=== PATIENT | female | born 1950 | race Caucasian/White ===

== ENCOUNTER 2017-06-18 09:52 | Outpatient (CLI) | payer MEDICARE, BC | END 2017-06-18 09:53 | disposition home or self-care (01) | LOC: BICMAMMO 09:52 | PROVIDERS: ATTEND Obstetrics & Gynecology | DX: Z12.31 Encounter for screening mammogram for malignant neoplasm of breast (principal) | CPT/HCPCS: 77063; 77067 ==

== ENCOUNTER 2017-12-17 10:25 | Outpatient (CLI) | payer MEDICARE ==
--- NOTE | 2017-12-17 11:34 | ULT ---
THYROID ULTRASOUND: History: Thyroid nodules. FINDINGS: Real-time imaging of the thyroid was performed. The right lobe has been removed. The left lobe measur es 2.1 x 2.2 x 5.8 cm. Multiple nodules are seen within the left lobe, the largest is a 1 x 1.2 cm so lid nodule in the lower pole region. The gland is very heterogeneous. IMPRESSION: 1. Patient is status post right thyroid lobectomy. 2. Multiple left lobe thyroid nodules, the largest of which is just slightly greater than 1 cm in siz e. POS: [facility]
== END 2017-12-17 10:26 | disposition home or self-care (01) ==
LOC: BICULT 10:25
PROVIDERS: ATTEND Registered Nurse
DX: E03.9 Hypothyroidism, unspecified (principal); E04.2 Nontoxic multinodular goiter; Z90.89 Acquired absence of other organs
CPT/HCPCS: 76536

== ENCOUNTER 2018-03-25 14:21 | Outpatient (CLI) | payer MEDICARE ==
--- NOTE | 2018-03-25 15:57 | ULT ---
ULTRASOUND THYROID: 03/25/18 HISTORY: 67-year-old female with: ICD-10: E04.2 - nontoxic multinodular goiter. COMPARISON: Thyroid ultrasound of 12/17/17. FINDINGS: RIGHT LOBE: Surgically absent. ISTHMUS:0.6 cm AP. LEFT LOBE:5.6 x 2.1 x 1.8 cm. Heterogeneous echogenicity and heterogeneous echotexture of the left lobe of the thyroid gland, with multiple nodules, including the followin) Left upper pole 1.1 x 0.7 x 0.5 cm. Mixed echogenicity with hypoechoic, intermediate, and mildly h yperechoic, components. Composition: Solid: 2 points. Echogenicity: Hypoechoic: 2 points. Shape: Wider than tall: 0 points. Margin: Smooth: 0 points. Echogenic foci: None: 0 points. Total points: 4 TI-RADS category 4: Moderately suspicious. RECOMMENDATIONS: Fine needle aspiration if greater than or equal to 1.5 cm. Followup if greater than or equal to 1 cm. The latter applies in this case. No interval change. 2) 0.8 x 0.9 x 0.5 cm at mid pole: Composition: Solid: 2 points. Echogenicity: Hypoechoic: 2 points. Margin: Smooth: 0 points. Shape: Wider than tall: 0 points. Echogenic foci: None: 0 points. TI-RADS category 4. Because is it smaller than 1 cm, no followup for this particular lesion. 3), At left lower pole, two nodules adjacent to each other. One of them is 0.5 x 0.5 x 0.5 cm and is moderately hypoechoic, with TI-RADS category 4. The other is of similar size, is slightly hypoechoic relative to thyroid parenchyma, and is also a TI-RADS category 4. Both are less than 1 cm, and do not require followup. Uncertain whether these were present previously or not. Previously, another larger structure was measured as a nodule at the left lower lobe, but it is uncertain whether or not that w as just heterogeneous thyroid parenchyma rather than a true nodule. IMPRESSION: 1. Status post right thyroid lobectomy. 2. Several small left thyroid nodules. 3. TI-RADS category 4 - moderately suspicious. 4. For the left upper pole nodule, followup is recommended at 1, 2, 3, and 5 years from the orig in thyroid ultrasound of 12/17/17. POS: [facility]
== END 2018-03-25 14:22 | disposition home or self-care (01) ==
LOC: BICULT 14:21
DX: E04.2 Nontoxic multinodular goiter (principal); Z90.89 Acquired absence of other organs
CPT/HCPCS: 76536

== ENCOUNTER 2018-07-07 09:17 | Outpatient (CLI) | payer MEDICARE, BC ==
--- NOTE | 2018-07-07 09:54 | MMO ---
Bilateral MAMMO Bilat Screen [facility]. CLINICAL HISTORY: Patient is 67 years old and is seen for screening. The patient has no family history of breast cancer. The patient has no personal history of cancer. The patient has a history of Stereotatic Biopsy in - benign. VIEWS: The views performed were: bilateral craniocaudal with tomosynthesis; bilateral mediolateral oblique with tomosynthesis; and bilateral exaggerated craniocaudal. FILMS COMPARED: The present examination has been compared to prior imaging studies performed at [facility] on 06/13/2016 and 06/18/2017, and at [facility] on 03/15/2013, 01/18/2014 and 02/03/2015. MAMMOGRAM FINDINGS: The breasts are heterogeneously dense, which could obscure a lesion on mammography. Finding 1: There are benign appearing calcifications seen in both breasts. Finding 2: There is a biopsy clip seen in the right breast. There are no suspicious masses, suspicious calcifications, or new areas of architectural distortion. IMPRESSION: THERE IS NO MAMMOGRAPHIC EVIDENCE OF MALIGNANCY. A ROUTINE FOLLOW-UP MAMMOGRAM IN 1 YEAR IS RECOMMENDED. THE RESULTS OF THIS EXAM WERE SENT TO THE PATIENT. ACR BI-RADS Category 2 - Benign finding MAMMOGRAPHY NOTE: 1. A negative mammogram report should not delay a biopsy if a dominant of clinically suspicious mass is present. 2. Approximately 10% to 15% of breast cancers are not detected by mammography. 3. Adenosis and dense breasts may obscure an underlying neoplasm.
== END 2018-07-07 09:18 | disposition home or self-care (01) ==
LOC: BICMAMMO 09:17
PROVIDERS: ATTEND Obstetrics & Gynecology
DX: Z12.31 Encounter for screening mammogram for malignant neoplasm of breast (principal)
CPT/HCPCS: 77063; 77067

== ENCOUNTER 2019-02-05 09:14 | Outpatient (CLI) | payer MEDICARE, BC ==
--- NOTE | 2019-02-05 10:23 | BD ---
EXAM: Bone densitometry using DEXA HISTORY: 68 yo female. Screening for postmenopausal osteoporosis FINDINGS: L1--bone mineral density 0.841 g/sq cm; T score -1.4 ; Z score 0.4 L2--bone mineral density 0.973 g/sq cm; T score -0.5 ; Z score 1.4 L3--bone mineral density 0.975 g/sq cm; T score -1.0 ; Z score 1.0 L4--bone mineral density 1.061 g/sq cm; T score 0.0 ; Z score 2.1 Total L1-L4--bone mineral density 0.971 g/sq cm; T score -0.7 ; Z score 1.2 Left femoral neck--bone mineral density0.633; T score -1.9 ; Z score -0.3 Total proximal left femur--bone mineral density 0.831; T score -0.9 ; Z score 0.4 There has been an interval increase of 3.1% in the BMD of the lumbar spine and a increase of 0.2% i n the BMD of the proximal femur since the previous study of 01/18/2014. IMPRESSION: Osteopenia
== END 2019-02-05 09:15 | disposition home or self-care (01) ==
LOC: BICMAMMO 09:14
PROVIDERS: ATTEND Obstetrics & Gynecology
DX: Z13.820 Encounter for screening for osteoporosis (principal); M85.89 Other specified disorders of bone density and structure, multiple sites
CPT/HCPCS: 77080

== ENCOUNTER 2019-07-30 11:09 | Outpatient (CLI) | payer MEDICARE, BC ==
--- NOTE | 2019-07-30 13:35 | MMO ---
Bilateral MAMMO Bilat Screen [facility]. CLINICAL HISTORY: Patient is 68 years old and is seen for screening. The patient has no family history of breast cancer. The patient has no personal history of cancer. The patient has a history of Stereotatic Biopsy in - benign and right Ultrasound Guided Core Biopsy - benign. VIEWS: The views performed were: bilateral craniocaudal with tomosynthesis and bilateral mediolateral oblique with tomosynthesis. FILMS COMPARED: The present examination has been compared to prior imaging studies performed at [facility] on 06/13/2016, 06/18/2017 and 07/07/2018, and at [facility] on 02/03/2015. This study has been interpreted with the assistance of computer-aided detection. MAMMOGRAM FINDINGS: The breasts are heterogeneously dense, which could obscure a lesion on mammography. Benign calcifications are noted bilaterally. Right biopsy clip. There are no suspicious masses, suspicious calcifications, or new areas of architectural distortion. IMPRESSION: THERE IS NO MAMMOGRAPHIC EVIDENCE OF MALIGNANCY. A ROUTINE FOLLOW-UP MAMMOGRAM IN 1 YEAR IS RECOMMENDED. THE RESULTS OF THIS EXAM WERE SENT TO THE PATIENT. ACR BI-RADS Category 2 - Benign finding MAMMOGRAPHY NOTE: 1. A negative mammogram report should not delay a biopsy if a dominant of clinically suspicious mass is present. 2. Approximately 10% to 15% of breast cancers are not detected by mammography. 3. Adenosis and dense breasts may obscure an underlying neoplasm. Reported by: DEBBIE AJ MD Electonically Signed: [id number]
== END 2019-07-30 11:10 | disposition home or self-care (01) ==
LOC: BICMAMMO 11:09
PROVIDERS: ATTEND Specialist
DX: Z12.31 Encounter for screening mammogram for malignant neoplasm of breast (principal); Z91.89 Other specified personal risk factors, not elsewhere classified
CPT/HCPCS: 77063; 77067

== ENCOUNTER 2020-08-04 10:48 | Outpatient (CLI) | payer MEDICARE, BC | END 2020-08-04 10:49 | disposition home or self-care (01) | LOC: BICMAMMO 10:48 | PROVIDERS: ATTEND Specialist | DX: Z12.31 Encounter for screening mammogram for malignant neoplasm of breast (principal) | CPT/HCPCS: 77063; 77067 ==

== ENCOUNTER 2021-08-29 08:38 | Outpatient (CLI) | payer MEDICARE, BC | END 2021-08-29 08:39 | disposition home or self-care (01) | LOC: BICMAMMO 08:38 | PROVIDERS: ATTEND Specialist | DX: Z12.31 Encounter for screening mammogram for malignant neoplasm of breast (principal); Z91.89 Other specified personal risk factors, not elsewhere classified | CPT/HCPCS: 77063; 77067 ==